=== PATIENT | male | born 1960 | race Caucasian/White ===

== ENCOUNTER 2022-03-16 17:55 | Emergency (ER) | payer BC, MEDICAID ==
[~2022-03-16] VITALS: Ht 170.2 cm; Wt 83.0 kg
[~2022-03-16 17:55] MED LIST: CRESTOR; PARO-66
[2022-03-16] MEDS ORDERED: METOCLOPRAMIDE HCL 5MG TABLET PO ONE (18:45)
[2022-03-16] MEDS ORDERED: ACETAMINOPHEN 325MG TABLET PO ONE (18:45)
[2022-03-16 19:06] LABS: BASOPHILS % 0.5 % (0.0-2.0); CHLORIDE 104 mEq/L (98-107); HEMATOCRIT. 39.7 % (42.0-52.0); HEMOGLOBIN. 13.4 g/dL (14.0-18.0); LYMPHOCYTES % 38.9 % (20.0-50.0); MEAN CORPUSCULAR HEMOGLOBIN 29.8 pg (28.0-32.0); MEAN CORPUSCULAR VOLUME 88.4 fL (80.0-94.0); MEAN PLATELET VOLUME 8.4 fl (7.4-10.4); MONOCYTES % 10.8 % (2.0-8.0); NEUTROPHILS % 46.8 % (40.0-76.0); PLATELET 236 x1000/uL (130-400); RED BLOOD CELL COUNT 4.49 mill/uL (4.7-6.1); RED CELL DISTRIBUTION WIDTH 13.9 % (11.6-14.6)
[2022-03-16 19:11] LABS: ETHANOL BLOOD < 10 mg/dL
[2022-03-16] MEDS ORDERED: METO5TAB86 MT (20:42)
[2022-03-16] MEDS ORDERED: ACET-2708 MT (20:42)
[2022-03-16 21:30] VITALS: BP 146/96
== END 2022-03-16 22:22 | disposition home or self-care (01) ==
LOC: ER 17:55
DX: G44.209 Tension-type headache, unspecified, not intractable (principal); I10 Essential (primary) hypertension; Z00.00 Encounter for general adult medical examination without abnormal findings; E78.00 Pure hypercholesterolemia, unspecified; Z79.899 Other long term (current) drug therapy
CPT/HCPCS: 36415; 71045; 80053; 80320; 83880; 84484; 85025; 93005; 99285; G0480